=== PATIENT | female | born 1970 | race Two or more races ===

== ENCOUNTER 2021-04-25 00:49 | Emergency (ER) | payer OTHER ==
[~2021-04-25] VITALS: Ht 142.2 cm; Wt 63.6 kg
[2021-04-25 01:03] VITALS: BP 146/84
== END 2021-04-25 01:50 | disposition left against medical advice (07) ==
LOC: EMS 01:02
DX: R52 Pain, unspecified (principal); Z53.21 Procedure and treatment not carried out due to patient leaving prior to being seen by health care provider